=== PATIENT | male | born 1975 | race Caucasian/White ===

== ENCOUNTER 2018-12-03 13:56 | Observation (INO) | payer OTHER, SELFPAY ==
--- NOTE | 2018-11-25 04:24 | HP_ITS ---
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 Is patient in pain?: No Allergies No Known Allergies Allergy (Unverified 11/25/18 15:29) Medications albuterol sulfate HFA 90 mcg/actuation aerosol inhaler 2 puff INHALATION Q6H PRN 11/25/18 [History Confirmed 11/25/18] aspirin 81 mg tablet,delayed release 81 mg PO DAILY 11/25/18 [History Confirmed 11/25/18] famotidine 20 mg tablet 20 mg PO DAILY 11/25/18 [History Confirmed 11/25/18] lisinopril 10 mg tablet 10 mg PO DAILY 11/25/18 [History Confirmed 11/25/18] montelukast 10 mg tablet 10 mg PO QPM 11/25/18 [History Confirmed 11/25/18] ondansetron HCl 4 mg tablet 4 mg PO TID-QID PRN 11/25/18 [History Confirmed 11/25/18] PFSH Medical History Cholelithiasis with chronic cholecystitis (Chronic) Asthma (Acute) Renal calculi (Acute) seizure associated with dehydration (Acute) Surgical History No history of previous surgery (Acute) Family History Father Hypertension Mother Hypertension Heart disease Brother Hypertension Cancer lymph nodes Grandmother Alzheimer's dementia Grandmother Emphysema, unspecified Social History Smoking Status: Never smoker alcohol intake: current alcohol intake frequency: a few times a month substance use type: does not use HPI HPI HPI: JADE DOUGLAS, is a 43 M who presents to the office today for HPI HPI Surgical H&P: Yes HPI: JADE DOUGLAS, is a 43 M who presents to the office today for surgical consultation regarding episodes of severe epigastric right upper quadrant pain. He presented to the [facility] emergency room on November 09, 2018. They had concerns it could be cardiac in etiology. He did have a stress test which was negative for acute ischemia. He had a gallbladder ultrasound obtained showing a thickened gallbladder wall to 4.6 mm and gallstones noted. The common common bile duct was not identified. A CT scan was obtained. Cholelithiasis with a stone in the gallbladder neck was identified. White blood cell count was 9.4. Amylase 49 and lipase 24. The patient was treated with a 5-day course of Augmentin. The patient is referred by Deborah Stewart CNP for surgical consultation regarding episode of severe biliary colic, chronic cholecystitis cholelithiasis and a written copy of my surgical consult recommendations will be returned to her ROS General General: No weight change, appetite, fatigue, colon cancer, breast cancer or weakness HEENT HEENT: No difficulty swallowing, eye injury, eye surgery, swollen glands or hoarseness Endo Endocrine: No thyroid disease, diabetes mellitus, thyroid cancer, Hair loss, heat intolerance or cold intolerance Skin Skin: No rash or changing moles Breast Breast: No left breast lump, right breast lump, nipple discharge, breast pain, abnormal mammogram, abnormal US or breast enlargement Musc Musculoskeletal: No back problems, arthritis, rheumatoid arthritis, gout or joint pain Cardio Cardiovascular: Yes high blood pressure; no murmur, pacemaker, heart disease, atrial fibrillation, heart attack, heart stent, palpitations, shortness of breat with exertion or chest pain Psych Psychiatric: No depression, anxiety or hearing voices Resp Respiratory: No shortness of breath, No sleep apnea, No cough, No COPD, Yes asthma, No emphysema, No wheezing Gastro Gastrointestinal: No abdominal pain, No nausea or vomiting, No diarrhea, No constipation, No blood in stool, No acid reflux, No hemorrhoids, No ulcers, Yes gallbladder problem, No black,tarry stools Tate Hematologic: No blood thinners, No blood disorders, No bleeding, No anemia, No blood clots Neuro Neurologic: No system reviewed and no additional complaints, except as docu, No as per HPI, No abnormal walking, No abnormal hearing, No abnormal movements, No abnormal speech, No behavioral changes, No burning sensations, No confusion, No seizure-like activity, No unsteadiness, No dizziness, No localized weakness, No frequent falls, No headache(s), No lack of coordination, No loss of vision, No memory loss, No numbness, No other visual disturbances, No radiating pain, No restless legs, No sensory deficit, No fainting, No tingling, No tremor(s), No weakness, No other Exam Const General: cooperative, healthy appearing, comfortable, no acute distress Nutritional Appearance: overweight Orientation: alert, awake, oriented x3 HENMT Head: normal to inspection Chest Breast Palpation: No nipple discharge Resp Effort & Inspection: normal respiratory effort Auscultation: clear to auscultation bilaterally Cardio Rate: regular rate Rhythm: regular rhythm Heart Sounds: no murmurs GI Palpation: soft, no hepatosplenomegaly Neuro General: alert Extrem General: no calf tenderness bilaterally Psych Affect: normal affect Assessment & Plan Problems 1. Calculus of gallbladder with chronic cholecystitis without obstruction K80.10 Plan I am recommending to the patient a lap scopic cholecystectomy with selective cholangiography. He is aware of the technique, benefit, risk of this. He has had an opting to ask and have questions answered. We will schedule and proceed at his discretion. I very much appreciate the kind opportunity stay with his surgical care Provider is Deborah Stewart, TIFFANI Perez M.D., F.A.C.S. Coding Level of Care Code Comprehensive,moderate Diagnoses Calculus of gallbladder with chronic cholecystitis without obstruction K80.10 ??Cholelithiasis location: gallbladder ??Biliary obstruction: without biliary obstruction 11/25/18 1624 <Electronically signed by Lane Perez MD> Date Lane Perez MD I have re-examined the patient. There are no clinical changes since date of exam.
[2018-11-25 15:38] VITALS: BMI 29.9
[2018-12-03] VITALS (11 sets, daily range): BP systolic 107–141; BP diastolic 44–90; PULSE 61–80; RESP 16–18; TEMP 36.3–36.6; O2SAT 94–99; BMI 29.7
--- NOTE | 2018-12-03 10:23 | EKG12_ITS ---
Test Reason : PRE OP Blood Pressure : / mmHG Vent. Rate : 057 BPM Atrial Rate : 057 BPM P-R Int : 192 ms QRS Dur : 084 ms QT Int : 380 ms P-R-T Axes : 025 -30 008 degrees QTc Int : 369 ms Sinus bradycardia with sinus arrhythmia Left axis deviation Abnormal ECG No previous ECGs available Confirmed by FLORA COLIN, DOM ([id number]), marketing editor KATARINA NIETO ([id number]) on 12/05/2018 8:29:24 AM Referred By: Lane Perez Confirmed By:DOM HINES MD
[2018-12-03 10:47] LABS: Hematocrit 45.1 % (40-54); Hemoglobin 15.4 g/dl (13.0-16.5); Mean Corp Hgb Conc 34.1 g/gl (32-36); Mean Corpuscular Volume 87.7 fL (80-94); Mean Platelet Vol. 9.2 fl (6.2-12.0); Platelet Count 264 K/mm3 (150-450); RBC Distribution Width CV 12.4 % (11.6-14.6); RBC Distribution Width SD 38.9 fl (35.1-43.9); Red Blood Count 5.14 M/mm3 (4.6-6.2); White Blood Count 6.3 K/mm3 (4.4-11.0)
[2018-12-03 10:49] LABS: Scan Indicated on CBC? Y/N NO
[2018-12-03 10:57] LABS: Anion Gap 3 (5-15); BUN 13 mg/dL (7-18); BUN/Creat Ratio 11.1 RATIO (10-20); Calcium,Total 8.8 mg/dL (8.5-10.1); Chloride 105 mmol/L (98-107); Creatinine, Serum 1.17 mg/dL (0.70-1.30); EST Glomerular Filtration Rate 72 mL/min (>60); Est Glom Filt Rate - Afr Amer 87 mL/min (>60); Glucose 80 mg/dL (74-106); Potassium 4.4 mmol/L (3.5-5.1); Sodium Level 139 mmol/L (136-145)
--- NOTE | 2018-12-03 12:00 | RAD_ITS ---
PROCEDURE: INTRAOPERATIVE CHOLANGIOGRAM. REASON FOR EXAM: Male, 43 years old. Abdominal pain. FLUOROSCOPY TIME (if supplied): (0:13) minutes/seconds RADIATION DOSAGE (If Supplied By Facility): 5.19 mGy TECHNIQUE: Fluoroscopic guidance was provided to Dr. Perez. 2 intraoperative cine runs comprising a total 69 images are submitted. COMPARISON: None. FINDINGS: Normal caliber intra-and extrahepatic bile ducts. No filling defects or strictures seen. Contrast flows to the duodenum. A second ductal structure medial to the distal common bile duct may be reflux into the nondistended pancreatic duct. RAD/Cholangiogram/ O R,Initial IMPRESSION: Normal intraoperative cholangiogram. Electronically Signed: Christopher Carr MD at 17:44 EDT , Service support ,
--- NOTE | 2018-12-03 12:00 | GALL_PTH ---
PATIENT: JADE DOUGLAS LOC: MS3 U#:[id number] AGE/SX: 43/M ROOM: NM314 RE12/03/[address]: Dr. Lane Perez MD : 1975 BED: 1 DIS: 12/04/2018 SPEC #: [id number] RECD: 12/03/18 16:25 STATUS: TYRESE SUSAN #: [id number] ANABELLE: 12/03/18 12:[address]: Lane Perez DEPT: SURGICAL PATHOLOGY RECD BY: Jose Antonio Thomas ENTERED: 12/04/18 08:49 SP TYPE: VAN DAVEY DR: Deborah Stewart, TAMI-C Tissues: Gallbladder, NOS Procedures: Surgery Specimen Level III HEADER OPERATION: Laparoscopic cholecystectomy with intraoperative cholangiogram PRE-OP DIAGNOSIS: Calculus of gallbladder with chronic cholecystitis without obstruction K80.10 TISSUE SUBMITTED: Gallbladder MICROSCOPIC DIAGNOSIS Gallbladder, cholecystectomy: Chronic cholecystitis, cholelithiasis and cholesterolosis. SJ:georgette 12/05/18 MICROSCOPIC DESCRIPTION Slides are reviewed. GROSS DESCRIPTION Received is one container labeled with the patient's name and designated gallbladder. The specimen consists of a gallbladder measuring 9 cm in length and up to 2.5 cm in diameter. The external surface is pink-ellsworth, smooth and glistening for the most part. Focally it is granular, hemorrhagic and contains cautery artifact. The gallbladder contains green-yellow mucoid bile, sludge material and three mulberry, ovoid, brownish stones measuring in aggregate 1.5 x 2.5 x 1 cm and 1 to 2 cm in greatest dimension. One of the stones is impacted close to the cystic duct. The mucosa is bile-stained and without any mass lesions. The gallbladder wall measures up to 0.7 cm in thickness. Increased amount of subserosal fat is noted. White Kid Buffer sections from the gallbladder and the cystic duct are submitted in one cassette. / STORM:georgette 12/04/18 TC:3 CPT: 70934
[2018-12-03] MEDS: Cefazolin 2 GM in 0.9% Normal Saline 100 ML IV ×2 (12:17→19:02)
--- NOTE | 2018-12-03 12:17 | DCINST_ITS ---
Addendum entered and electronically signed by Vicky Arzola PA-C 12/04/18 12:14: Prescription for Flomax was also sent to the pharmacy for 7 days. Original Note: <Lane Perez - Last Filed: 12/03/18 12:16> Discharge Diet: Light diet - advance as tolerated - if you have questions about your diet instructions, please talk to you doctor. Discharge Activity: May Not Drive - for 3-5 days or while taking narcotic pain medicine. May shower in (days): 1 Lifting Restrictions: 10 pounds Call your doctor if your incision/area has: Continuous Slow Oozing, Sudden Increased Bleeding, Increased Pain/ Swelling, Increased Redness, Foul Smelling Discharge Call your doctor if you observe: Fever of 101 or Higher Suture Line Care: Avoid Pulling/Pushing, Avoid Pinching/Bending Additional Dressing/Incision Instructions:: Change or remove dressing in 4 days. Leave steri-strips in place for 1 week. Allergies/Adverse Reactions: Allergies No Known Allergies Allergy (Unverified 12/03/18 10:47) Medications to take at Discharge albuterol sulfate HFA 90 mcg/actuation aerosol inhaler 2 puff INHALATION Q6H PRN 11/25/18 aspirin 81 mg tablet,delayed release 81 mg PO DAILY 11/25/18 famotidine 20 mg tablet 20 mg PO DAILY 11/25/18 lisinopril 10 mg tablet 10 mg PO QHS 11/25/18 montelukast 10 mg tablet 10 mg PO QHS 11/25/18 ondansetron HCl 4 mg tablet 4 mg PO TID-QID PRN 11/25/18 Hydrocodone Bitart/Apap 5-325 [[place] 5MG-325MG] 1 tablet PO Q4H PRN PRN 2 Days #8 tablet 12/03/18 The following prescriptions were given: Hydrocodone Bitart/Apap 5-325 [[place] 5MG-325MG] 1 tablet PO Q4H PRN PRN 2 Days #8 tablet PRN Reason: Pain Primary Care Physician: Deborah Stewart NP-C [Primary Care Provider] - Test Results: Test results from this visit will be discussed in further detail at your follow- up appointment, if applicable. Please Follow Up With: Lane Perez MD - [phone] When: Call to make an appointment to be seen in about 10 days. <Vicky Arzola - Last Filed: 12/04/18 12:13> Test Results: Test results from this visit will be discussed in further detail at your follow- up appointment, if applicable.
[2018-12-03] MEDS: Bupivacaine Mpf 0.5% 30 ML VIAL (13:45)
--- NOTE | 2018-12-03 14:00 | PCM.OPRPT ---
Problem List (1) Cholelithiasis with chronic cholecystitis Status: Chronic Qualifiers: Cholelithiasis location: gallbladder Biliary obstruction: without biliary obstruction Qualified Code(s): K80.10 - Calculus of gallbladder with chronic cholecystitis without obstruction Report of Operation Date of Procedure: 12/03/18 Pre-Operative Diagnosis: Chronic cholecystitis cholelithiasis Post-Operative Diagnosis: Severe chronic cholecystitis cholelithiasis Surgery/Procedure Performed:: Laparoscopic cholecystectomy with cholangiograms Description of Surgical Findings:: Timeout and informed consent was obtained. 43-year-old gent was taken out from placement table underwent general endotracheal intubation anesthesia. 2 g of Ancef were given intravenously preoperatively. The abdomen was sterilely prepped and draped. 0.5% Marcaine was used as local anesthetic. Throughout the procedure total 30 cc was used. Skin sites were pre-anesthetized. A vertical infraumbilical incision was created with sutures of 0 Vicryl placed varies needle inserted saline drop test performed the abdomen was insufflated with CO2 to a pressure of 10 mm work pressure to me trocar inserted to relapse and so inserted no evidence of any trocar injuries. 5-minute trochars in place in the epigastric mid abdomen right upper quadrant. The abdomen was inspected there was quite heavy overlying drape of fatty omentum. The omentum it completely encased the gallbladder. This had to be bluntly dissected free. Hook cautery was used for part of the dissection blunt dissection with hemoclips for additional part. This was very tedious carefully working my way down to the infundibular area. Retraction the gallbladder allowed for careful aqua dissection and blunt dissection to identify the portal area. The cystic artery and cystic duct was carefully teased free. I then did further dissection to obtain critical view and had the entire hepatocystic window opened up. I secured the cystic artery with 2 hemo-lock clips proximally and one distally prior to transecting it. I then put a Hemoclip on the cystic duct stump incision and the sister put a claims Angel in view of a 14-gauge Angiocath and fluoroscopically controlled clench grams were obtained demonstrating normal ductal anatomy free flow into the small bowel. The claims Angel catheter was removed and additional hemo-lock clip was placed on the cystic duct stump prior to transecting it. The gallbladder was now tediously dissected from the liver bed. There was quite a bit of inflammation in this area and dissection was rather tedious. Small amount of bile spillage occurred but [place] no stone spillage. The bowel was rapidly aspirated and the hole controlled with a grasper. The gallbladder was released. The gallbladder was placed in a retrieval bag. The subhepatic space was inspected and carefully irrigated and aspirated free. A piece of fibular was placed in the liver bed to further assist with complete hemostasis. At this point secondary to the difficulty of the dissection and degree of inflammation I elected to leave a 15 round WYATT drain. That was exited through the right upper quadrant port was shortened in length and was placed to the subhepatic space. It was secured to the skin with interrupted 3-0 nylon. The gallbladder was then removed at the umbilicus. This required lengthening the skin incision and fascial incision. Gallbladder was then removed intact. The abdomen was allowed to deflate the CO2. The fascia at the umbilicus was approximated with a stoiwn-bl-aerta of 0 Vicryl in a running 0 Vicryl. Good fascial closure was achieved. Skin edges were approximated interrupted 4 Monocryl subdermal stitches. Steri-Strips and Telfa and OpSite dressings applied. Sponge and instrument and needle counts were reported the surgeon be correct. Blood loss was minimal. He tolerated the procedure well was taken to the recovery room in satisfactory condition without apparent complication. I anticipate an overnight stay to continue to observe. Specimen gallbladder. Drains 15 round WYATT. Blood loss minimal. Lane Perez M.D., F.A.C.S. Type of Anesthesia:: General Anesthesiologist: Josafat Floyd
[2018-12-03] MEDS: Lactated Ringers 1,000 ML 40 ML IV (19:00)
[2018-12-03] MEDS: Ondansetron ODT 4 MG Tablet PO (19:40)
[2018-12-03] MEDS: Acetaminophen 325 MG Tablet 650 MG PO (20:16)
[2018-12-03] MEDS: Montelukast 10 MG Tablet PO (22:16)
[2018-12-03] MEDS: Morphine 2 MG/ML Syringe IV (22:16)
[2018-12-03] MEDS: Ondansetron 4 MG/2 ML Vial IV (22:16)
[2018-12-03] MEDS: Lisinopril 10 MG Tablet PO (22:16)
[2018-12-04 00:02] VITALS: BP 132/76; PULSE 61; RESP 18; TEMP 36.9; O2SAT 95
[2018-12-04] MEDS: Cefazolin 2 GM in 0.9% Normal Saline 100 ML IV (00:37)
[2018-12-04 04:02] VITALS: BP 115/70; PULSE 53; RESP 18; TEMP 36.8; O2SAT 98
[2018-12-04] MEDS: Acetaminophen 325 MG Tablet 650 MG PO (04:25)
--- NOTE | 2018-12-04 05:53 | PCM.PN.SRG ---
Subjective: Nausea last night, seemingly improved Urinary retention with ongoing urgency and frequency - Physical Exam General: Alert, Oriented x3 Lungs: Clear to auscultation Abdomen: Soft, Hypoactive Bowel Sounds, Distended, - - WYATT: Minimal clearing output Vital Signs Temp Pulse Resp BP Pulse Ox 98.3 F 53 L 18 115/70 98 12/04/18 04:02 12/04/18 04:02 12/04/18 04:02 12/04/18 04:02 12/04/18 04:02 Oxygen Flow Rate (L/min) 2 Oxygen Delivery Method Room Air Weight: 206 lb 12.697 oz Body Mass Index (BMI) 29.7 Intake and Output for Last 24 Hours 12/02/18 12/03/18 12/04/18 23:59 23:59 23:59 Intake Total 2400 / 2400 1301 / 1301 Output Total 50 / 50 1090 / 1090 Balance 2350 / 2350 211 / 211 Laboratory Tests Past 24 Hrs 12/03/18 12/03/18 10:25 10:25 WBC 6.3 RBC 5.14 Hgb 15.4 Hct 45.1 MCV 87.7 MCH 30.0 MCHC 34.1 RDW 12.4 RDW Differential 38.9 Plt Count 264 MPV 9.2 Sodium 139 Potassium 4.4 Chloride 105 Carbon Dioxide 31.0 Anion Gap 3 L BUN 13 Creatinine 1.17 Est GFR (MDRD) Af Amer 87 Est GFR (MDRD) Non-Af 72 BUN/Creatinine Ratio 11.1 Glucose 80 Calcium 8.8 Medical Necessity - Tobacco Use Smoking Status: Never smoker Tobacco Use: Non-smoker Assessment/Plan We will remove WYATT. We will continue clear liquids and reassess later this morning Will provide Flomax and check post void bladder scan Hopeful discharge later this morning Lane Perez M.D., F.A.C.S.
[2018-12-04] MEDS: Tamsulosin HCl 0.4 MG Capsule PO (06:29)
[2018-12-04] MEDS: Morphine 2 MG/ML Syringe IV (06:31)
[2018-12-04] MEDS: Ondansetron 4 MG/2 ML Vial IV (06:50)
[2018-12-04 08:02] VITALS: BP 124/80; PULSE 60; RESP 18; TEMP 36.3; O2SAT 94
[2018-12-04] MEDS: Famotidine 20 MG Tablet PO (08:49)
== END 2018-12-04 12:35 | disposition home or self-care (01) ==
LOC: SDC 12-04 09:44 → MS3 12-04 09:44
PROVIDERS: Admitting Provider Surgery; Family Provider Nurse Practitioner Family; PCP Nurse Practitioner Family; Referring Provider Surgery; Visit Provider Surgery
PROC: (CPT 47610; principal; 2018-12-03 11:40)
DX: K80.12 Calculus of gallbladder with acute and chronic cholecystitis without obstruction (principal); J45.909 Unspecified asthma, uncomplicated; Z79.899 Other long term (current) drug therapy; Z79.82 Long term (current) use of aspirin
CPT/HCPCS: 47563; 36415; 74300; 76000; 80048; 85027; 88304; 93005; 96365; 96366; 96375; 96376; 99218; J7120; G0378; G0379; J2405